=== PATIENT | male | born 1970 | race African-American/Black ===

== ENCOUNTER 2020-09-05 18:11 | Emergency (ER) | payer SELFPAY ==
[~2020-09-05] VITALS: Ht 172.7 cm; Wt 78.0 kg
[2020-09-05 18:25] VITALS: BP 171/98
[2020-09-05] MEDS ORDERED: SODIUM CHLORIDE 0.9% 1,000 ML IV ONE (18:45)
[2020-09-05 20:17] LABS: BASOPHILS % 0.8 % (0.0-2.0); EOSINOPHILS % 3.8 % (0.0-5.0); HEMATOCRIT. 39.5 % (42.0-52.0); HEMOGLOBIN. 13.4 g/dL (14.0-18.0); LYMPHOCYTES % 36.2 % (20.0-50.0); MEAN CORPUSCULAR HEMOGLOBIN 29.4 pg (28.0-32.0); MEAN CORPUSCULAR VOLUME 86.8 fL (80.0-94.0); MEAN PLATELET VOLUME 6.6 fl (7.4-10.4); MONOCYTES % 7.3 % (2.0-8.0); NEUTROPHILS % 51.9 % (40.0-76.0); PLATELET 259 x1000/uL (130-400); RED BLOOD CELL COUNT 4.55 mill/uL (4.7-6.1); RED CELL DISTRIBUTION WIDTH 12.5 % (11.6-14.6)
[2020-09-05 20:23] LABS: CHLORIDE 106 mEq/L (98-107)
[2020-09-05 20:27] LABS: ETHANOL BLOOD < 10 mg/dL
== END 2020-09-05 20:36 | disposition left against medical advice (07) ==
LOC: ER 18:11 → EDBD 18:11 → ER 20:36
DX: R41.82 Altered mental status, unspecified (principal)
CPT/HCPCS: 36415; 80053; 80320; 85025; 99283; J7030; G0480